=== PATIENT | female | born 2000 | race Caucasian/White ===

== ENCOUNTER 2022-04-11 04:01 | Emergency (ER) | payer OTHER, SELFPAY ==
[2022-04-11 04:41] LABS: Bilirubin Neg (Negative); Blood, Urine 250 (Negative); Clarity Clear (Clear); Glucose, Urine (Dipstick) Normal (Negative); Ketone, Urine Negative (Negative); Leukocyte Negative (Negative); Nitrite Negative (Negative); Protein, Urine (Dipstick) Negative (Neg-Trace); Specific Gravity, Urine 1.005 (1.002-1.036); Urobilinogen Normal mg/dL (Less than 2); pH, Urine 6.5 (5.0-9.0)
[2022-04-11 04:53] LABS: Bacteria/HPF None Seen HPF (None Seen); Squamous Epithelial 0-3 HPF (0-3); WBC/HPF 0-3 HPF (0-3)
== END 2022-04-11 06:44 | disposition home or self-care (01) ==
LOC: CSHERS 04:01
DX: O20.9 Hemorrhage in early pregnancy, unspecified (principal); Z87.891 Personal history of nicotine dependence
CPT/HCPCS: 76856; 81003; 81015

== ENCOUNTER 2022-04-14 14:45 | Emergency (ER) | payer SELFPAY | END 2022-04-14 16:35 | disposition home or self-care (01) | LOC: CSHERS 14:45 | DX: O03.4 Incomplete spontaneous abortion without complication (principal); Z87.891 Personal history of nicotine dependence | CPT/HCPCS: 36415; 84702; 99284 ==

== ENCOUNTER 2023-08-27 02:43 | Day surgery (SDC) | payer OTHER ==
[2023-08-27 02:54] VITALS: BMI 26.0
== END 2023-08-27 03:30 | disposition home or self-care (01) ==
LOC: CSHLD/OP 02:43
PROVIDERS: ATTEND Family Medicine
DX: O99.891 Other specified diseases and conditions complicating pregnancy (principal); R10.13 Epigastric pain; Z3A.22 22 weeks gestation of pregnancy
CPT/HCPCS: 99283

== ENCOUNTER 2023-12-09 05:40 | Day surgery (SDC) | payer OTHER ==
[2023-12-09 06:01] VITALS: BMI 28.3
== END 2023-12-09 17:08 | disposition home or self-care (01) ==
LOC: CSHLD/OP 05:40
PROVIDERS: ATTEND Family Medicine
DX: O36.8130 Decreased fetal movements, third trimester, not applicable or unspecified (principal); Z3A.37 37 weeks gestation of pregnancy; Z79.899 Other long term (current) drug therapy
CPT/HCPCS: 99282

== ENCOUNTER 2023-12-28 19:37 | Inpatient (IN) | payer OTHER ==
[2023-12-28 19:58] VITALS: BMI 28.3
[2023-12-28] MEDS ORDERED: hydrALAZINE 20 MG/ML VIAL SLOW IVP PRN (20:23)
[2023-12-28] MEDS ORDERED: Acetaminophen 500 MG TAB PO PRN (21:55)
[2023-12-28] MEDS ORDERED: Lactated Ringer's 1,000 ML IV SCH (22:00)
[2023-12-28] MEDS: fentaNYL 50 mcg/mL 1 mL Vial ONE (22:31)
[2023-12-28] MEDS: Lactated Ringer's 1,000 ML IV SCH (23:02)
[2023-12-28] MEDS: fentaNYL 50 mcg/mL 1 mL Vial SLOW IVP SCH (23:05)
[2023-12-29] MEDS: fentaNYL 50 mcg/mL 1 mL Vial SLOW IVP SCH (00:40)
[2023-12-29 01:00] LABS: Bilirubin Neg (Negative); Blood, Urine 10 (Negative); Clarity Clear (Clear); Glucose, Urine (Dipstick) Normal (Negative); Ketone, Urine Negative (Negative); Leukocyte 25 (Negative); Nitrite Negative (Negative); Protein, Urine (Dipstick) 15 mg/dl (Neg-Trace); Specific Gravity, Urine 1.005 (1.005-1.030); Urobilinogen Normal mg/dL (Less than 2)
[2023-12-29 01:07] LABS: CAUTI Indications for Culture Pregnancy; RBC/HPF 0-3 HPF (0-3)
[2023-12-29 01:08] LABS: Bacteria/HPF Rare-Few HPF (None Seen)
[2023-12-29 01:09] LABS: Urine Culture Reflex Yes Yes
[2023-12-29] MEDS ORDERED: Diphenoxylate HCl/Atropine Tablet PO PRN (02:16)
[2023-12-29] MEDS ORDERED: Tranexamic Acid 1,000 MG/10 ML VIAL IVP PRN (02:16)
[2023-12-29] MEDS ORDERED: Misoprostol 200 MCG TAB PR PRN (02:16)
[2023-12-29] MEDS ORDERED: Ondansetron PF 4 MG/2 ML Vial IVP PRN ×4 (02:16→16:20)
[2023-12-29] MEDS ORDERED: Acetaminophen 500 MG TAB PO PRN (02:16)
[2023-12-29] MEDS ORDERED: Docusate 100 MG CAP PO PRN (02:16)
[2023-12-29] MEDS ORDERED: Butorphanol Tartrate 1 MG/ML VIAL SLOW IVP PRN (02:16)
[2023-12-29] MEDS ORDERED: Methylergonovine 0.2 MG/ML VIAL IM PRN (02:16)
[2023-12-29] MEDS ORDERED: Promethazine HCl 25 MG/ML VIAL IM PRN ×3 (02:16→16:20)
[2023-12-29] MEDS ORDERED: Lidocaine 1% (PF) 30 ML VIAL SC PRN (02:16)
[2023-12-29] MEDS ORDERED: hydrALAZINE 20 MG/ML VIAL SLOW IVP PRN ×2 (02:16→15:36)
[2023-12-29] MEDS ORDERED: Carboprost 250 MCG/ML AMP IM PRN (02:16)
[2023-12-29] MEDS ORDERED: Ibuprofen 800 MG TAB PO PRN (02:16)
[2023-12-29] MEDS ORDERED: fentaNYL 50 mcg/mL 1 mL Vial SLOW IVP PRN ×2 (02:16→16:20)
[2023-12-29] MEDS ORDERED: Misoprostol 100 MCG TAB VAG SCH (02:30)
[2023-12-29 02:34] LABS: Hematocrit 24.3 % (34.9-44.5); Hemoglobin 7.1 g/dL (12.0-15.5); Mean Corpuscular HGB CONC 29.2 g/dL (32.0-36.0); Mean Corpuscular Hemoglobin 18.9 pg (27.0-33.0); Mean Corpuscular Volume 64.8 fl (81.6-98.3); Platelet Count 257 10x3/uL (150-450); RBC Distribution Width 18.6 % (11.5-14.5); Red Blood Cell (RBC) Count 3.75 10x6/uL (3.90-5.03); White Blood Cell (WBC) Count 13.8 10x3/uL (3.5-10.5)
[2023-12-29 02:58] LABS: Syphilis Antibody Nonreactive (Nonreactive); Syphilis Antibody Index 0.09 S/CO (<1.00 Non-Reactive)
[2023-12-29 02:59] LABS: HBSAg Index 0.31 S/CO (0-0.99); Hep B Surf Ag - L&D Non-Reactive S/CO (NonReactive)
[2023-12-29] MEDS ORDERED: Oxytocin 30 units/NS 500 ML 500 ML IV SCH ×2 (03:00)
[2023-12-29] MEDS ORDERED: ePHEDrine Sulfate 50 MG/10 ML VIAL SLOW IVP PRN (03:42)
[2023-12-29] MEDS ORDERED: Moisturizing Cream (Eucerin) 113 GM JAR TOP PRN ×2 (03:42→16:20)
[2023-12-29] MEDS ORDERED: diphenhydrAMINE 50 MG/ML VIAL IVP PRN ×2 (03:42→16:20)
[2023-12-29] MEDS ORDERED: Lactated Ringer's 500 ML IV PRN (03:42)
[2023-12-29] MEDS ORDERED: Naloxone HCl 0.4 mg/ml Vial IVP PRN ×4 (03:42→16:20)
[2023-12-29] MEDS ORDERED: Communication Order-Pharmacy FS SCH ×2 (03:45→16:30)
[2023-12-29] MEDS: Lactated Ringer's 1,000 ML IV SCH (07:48)
[2023-12-29] MEDS: Oxytocin 30 units/NS 500 ML 500 ML IV SCH (07:48)
[2023-12-29] MEDS ORDERED: Bupivacaine 0.25% HCL 30 ML VIAL ONE (08:00)
[2023-12-29] MEDS ORDERED: Bupivacaine PF 0.5% 30 ML VIAL ONE (08:00)
[2023-12-29] MEDS: fentaNYL/Ropivacaine Epidural 100 ML ONE (08:01)
[2023-12-29] MEDS: Misoprostol 100 MCG TAB VAG SCH (08:01)
[2023-12-29] MEDS: fentaNYL 2 mcg/Ropivacaine 0.2% Epidural 100 ML CADD EPIDURAL SCH (13:31)
[2023-12-29] MEDS ORDERED: Bicitra 30 ML UDCUP PO PRN (14:40)
[2023-12-29] MEDS ORDERED: Famotidine/PF 20 mg/2ml Vial SLOW IVP PRN (14:40)
[2023-12-29] MEDS ORDERED: CEFAZOLIN 2 GM in Sodium Chloride 0.9% 100 ML IVPB SCH (14:45)
[2023-12-29] MEDS ORDERED: Bisacodyl 10 MG SUPP PR PRN (15:36)
[2023-12-29] MEDS ORDERED: HYDROcodone/Acetaminophen 5/325 mg Tablet PO PRN (15:36)
[2023-12-29] MEDS ORDERED: Zolpidem Tartrate 5 MG TAB PO PRN (15:36)
[2023-12-29 16:01] LABS: Analyzer IN Cardio CS NICU; pH (Cord, venous) 7.146 (7.250-7.350)
[2023-12-29 16:08] LABS: Analyzer IN Cardio CS NICU; RapidComm Collect By OR NURSE
[2023-12-29] MEDS ORDERED: Naloxone HCl 0.4 mg/ml Vial IV PRN (16:20)
[2023-12-29] MEDS ORDERED: Promethazine HCl 25 MG SUPP PR PRN (16:20)
[2023-12-29] MEDS: fentaNYL 50 mcg/mL 1 mL Vial ONE (16:36)
[2023-12-29] MEDS: Ketorolac Tromethamine 30 MG (1 mL) VIAL IVP SCH (17:17)
[2023-12-29] MEDS: Meperidine HCl/PF 25 MG (1 mL) VIAL SLOW IVP PRN (17:20)
[2023-12-29] MEDS: Dextrose 5%-Lactated Ringers 1,000 ML IV SCH (17:34)
[2023-12-29] MEDS: Azithromycin 500 MG VIAL ONE ×2 (17:34→17:35)
[2023-12-29] MEDS: Erythromycin Base 0.5% Oint 1 GM TUBE ONE (17:35)
[2023-12-29] MEDS: CEFAZOLIN 2 GM VIAL ONE (17:35)
[2023-12-29] MEDS: Hepatitis B Vaccine 10 MCG/0.5 ML SYR ONE (17:35)
[2023-12-29] MEDS: Morphine PF 10 MG/10 ML VIAL ONE ×2 (17:36→17:41)
[2023-12-29] MEDS: Carboprost 250 MCG/ML AMP ONE (17:36)
[2023-12-29] MEDS: Methylergonovine 0.2 MG/ML VIAL ONE (17:36)
[2023-12-29] MEDS: Oxytocin 10 UNITS/ML VIAL ONE ×2 (17:36→17:41)
[2023-12-29] MEDS: Phytonadione Neonatal 1 MG/0.5 ML AMP ONE (17:36)
[2023-12-29] MEDS: Famotidine/PF 20 mg/2ml Vial ONE (17:36)
[2023-12-29] MEDS: Lidocaine 2% MPF 10 ML AMP (For Epidural Use) ONE ×2 (17:36→17:41)
[2023-12-29] MEDS: Midazolam HCl 2 mg/2 ml Vial ONE (17:39)
[2023-12-29] MEDS: KETAMINE 100 MG/ML (5ML VIAL) ONE (17:39)
[2023-12-29] MEDS: Dexamethasone 4 mg/ml Vial ONE (17:39)
[2023-12-29] MEDS: Dexmedetomidine 200 MCG/2 ML VIAL ONE (17:39)
[2023-12-29] MEDS: Ondansetron PF 4 MG/2 ML Vial ONE (17:40)
[2023-12-29] MEDS: Tranexamic Acid 1,000 MG/10 ML VIAL ONE (17:40)
[2023-12-29] MEDS: Ferrous Sulfate 325 MG TAB PO SCH (21:20)
[2023-12-29] MEDS ORDERED: Ibuprofen 800 MG TAB PO SCH (22:00)
[2023-12-29] MEDS: Ketorolac Tromethamine 30 MG (1 mL) VIAL IVP PRN (23:24)
[2023-12-30 03:58] LABS: Critical Call w/ Read Back NUR.EC4@0357; Hematocrit 19.5 % (34.9-44.5); Hemoglobin 5.7 g/dL (12.0-15.5); Mean Corpuscular HGB CONC 29.2 g/dL (32.0-36.0); Mean Corpuscular Hemoglobin 19.2 pg (27.0-33.0); Mean Corpuscular Volume 65.7 fl (81.6-98.3); Platelet Count 198 10x3/uL (150-450); RBC Distribution Width 18.8 % (11.5-14.5); Red Blood Cell (RBC) Count 2.97 10x6/uL (3.90-5.03); White Blood Cell (WBC) Count 25.4 10x3/uL (3.5-10.5)
[2023-12-30] MEDS ORDERED: Zolpidem Tartrate 5 MG TAB PO PRN (04:30)
[2023-12-30] MEDS: HYDROcodone/Acetaminophen 5/325 mg Tablet PO PRN ×2 (07:52→13:47)
[2023-12-30 16:12] LABS: Hematocrit 25.3 % (34.9-44.5); Hemoglobin 7.6 g/dL (12.0-15.5); Mean Corpuscular Hemoglobin 21.3 pg (27.0-33.0); Mean Corpuscular Volume 71.1 fl (81.6-98.3); Mean Platelet Volume 11.8 fl (7.4-10.4); Platelet Count 160 10x3/uL (150-450); RBC Distribution Width 22.2 % (11.5-14.5); Red Blood Cell (RBC) Count 3.56 10x6/uL (3.90-5.03); White Blood Cell (WBC) Count 18.6 10x3/uL (3.5-10.5)
[2023-12-30] MEDS: Simethicone Chewable 80 MG TAB PO PRN (20:39)
[2023-12-30] MEDS: Ibuprofen 800 MG TAB PO SCH (21:04)
[2023-12-31] MEDS: Boostrix 0.5 ML (Tdap) VIAL (>/=7 yrs of age) IM ONE (07:23)
[2023-12-31] MEDS: Acetaminophen 325 MG TAB PO PRN (08:34)
[2024-01-02 08:08] VITALS: BP 134/60; TEMP 98.7
== END 2024-01-02 15:30 | disposition home or self-care (01) | DRG 788 ==
LOC: CSHLD/OP 19:37 → CSHLD 12-29 02:17 → CSHPP 12-29 18:54
PROVIDERS: ADMIT Family Medicine; ATTEND Family Medicine
PROC: 10D00Z1 Extraction of Products of Conception, Low, Open Approach (ICD-10-PCS; principal; 2023-12-29)
PROC: 30233N1 Transfusion of Nonautologous Red Blood Cells into Peripheral Vein, Percutaneous Approach (ICD-10-PCS; 2023-12-30)
DX: O99.013 Anemia complicating pregnancy, third trimester (principal); Z3A.40 40 weeks gestation of pregnancy; Z37.0 Single live birth; D64.9 Anemia, unspecified; O62.1 Secondary uterine inertia; O32.6XX0 Maternal care for compound presentation, not applicable or unspecified; O77.0 Labor and delivery complicated by meconium in amniotic fluid; O42.02 Full-term premature rupture of membranes, onset of labor within 24 hours of rupture; O76 Abnormality in fetal heart rate and rhythm complicating labor and delivery
CPT/HCPCS: 36415; 36430; 51702; 81001; 82805; 85027; 86780; 86850; 86900; 86901; 87086; 87340; 87480; 87510; 87660; 99285; J0665; J1100; J1885; J2175; J2210; J2250; J2274; J2405; J2590; J3010; J3490; J7120; P9016; S0028